=== PATIENT | male | born 1960 | race African-American/Black ===

== ENCOUNTER 2021-10-27 20:58 | Emergency (ER) | payer MEDICAID ==
[~2021-10-27] VITALS: Ht 182.9 cm; Wt 79.0 kg
[2021-10-27 21:49] VITALS: BP 130/76
[2021-10-27] MEDS ORDERED: DOXYCYCLINE HYCLATE 100MG CAPSULE PO ONE (22:30)
[2021-10-27] MEDS ORDERED: LIDOCAINE HCL 1% 20ML VIAL (Pyxis) INJ INFIL ONE (22:30)
[2021-10-27] MEDS ORDERED: CEFTRIAXONE SODIUM 500 MG/VIAL IM ONE (22:30)
[2021-10-27 23:07] LABS: CLARITY URINE CLOUDY (CLEAR); COLOR URINE YELLOW (YELLOW); KETONES URINE TRACE (NEGATIVE); LEUKOCYTE ESTERASE URINE 2+ (NEGATIVE); NITRITE URINE NEGATIVE (NEGATIVE); OCCULT BLOOD URINE 1+ (NEGATIVE); PH URINE 5.5 (4.5-8.0); PROTEIN URINE TRACE (NEGATIVE); SPECIFIC GRAVITY URINE 1.038 (1.005-1.030)
[2021-10-27] MEDS ORDERED: DOXY100C5 MT (23:51)
[2021-11-01 04:08] LABS: NEISSERIA GONORRHOEAE NAA Positive (Negative)
== END 2021-10-28 00:18 | disposition home or self-care (01) ==
LOC: ER 20:58
DX: R30.0 Dysuria (principal); A54.9 Gonococcal infection, unspecified; R36.9 Urethral discharge, unspecified
CPT/HCPCS: 81003; 87086; 87491; 87591; 96372; 99283; J0696; J3490

== ENCOUNTER 2022-06-02 02:09 | Emergency (ER) | payer MEDICAID, OTHER ==
[~2022-06-02] VITALS: Ht 182.9 cm; Wt 75.0 kg
[~2022-06-02 02:09] MED LIST: DOXY100C5 MT
[2022-06-02 02:16] VITALS: BP 116/67
[2022-06-02 03:19] LABS: BASOPHILS % 0.7 % (0.0-2.0); EOSINOPHILS % 4.2 % (0.0-5.0); HEMATOCRIT. 36.5 % (42.0-52.0); HEMOGLOBIN. 12.2 g/dL (14.0-18.0); LYMPHOCYTES % 16.3 % (20.0-50.0); MEAN CORPUSCULAR HEMOGLOBIN 31.4 pg (28.0-32.0); MEAN PLATELET VOLUME 8.2 fl (7.4-10.4); NEUTROPHILS % 71.8 % (40.0-76.0); PLATELET 206 x1000/uL (130-400); RED BLOOD CELL COUNT 3.88 mill/uL (4.7-6.1); RED CELL DISTRIBUTION WIDTH 14.2 % (11.6-14.6)
[2022-06-02 03:29] LABS: CHLORIDE 107 mEq/L (98-107)
== END 2022-06-02 03:39 | disposition left against medical advice (07) ==
LOC: ER 02:15
DX: R42 Dizziness and giddiness (principal); Z53.21 Procedure and treatment not carried out due to patient leaving prior to being seen by health care provider
CPT/HCPCS: 36415; 71045; 80053; 84484; 85025; 99284